=== PATIENT | female | born 1965 | race Caucasian/White ===

== ENCOUNTER 2025-03-02 15:23 | Observation (INO) ==
[2025-03-02 16:19] LABS: Hematocrit (blood only) 43.2 % (37.0-47.0); Hemoglobin 14.9 g/dl (12.0-16.0); Mean Corpuscular Hemoglobin 28.8 pg (25.0-34.0); Mean Corpuscular Volume 83.6 fL (80.0-100.0); Platelet Count 260 K/uL (130-400); RDW Standard Deviation 38.1 fL (36.4-46.3); Red Blood Count 5.17 M/uL (4.20-5.40); White Blood Count 13.06 K/ul (4.8-10.8)
[2025-03-02 16:32] LABS: Appearance Urine Cloudy (Clear); Bacteria Urine Automated None Seen (None Seen); Glucose Urine UA Negative (Negative); WBC Urine Automated >50 /hpf (0-5)
--- NOTE | 2025-03-02 16:33 | Emergency Department Note ---
Impression & Plan Hematemesis, Melena, Acute prerenal azotemia ED Provider Note NAME: JT ANDERSEN AGE: 59 SEX: F : 1965 ARRIVES VIA: Walk-In INFORMANT: Patient, ED PROVIDER(S): Suresh Vazquez MD CHIEF COMPLAINT: MEDICAL DECISION MAKING: Patient presents due to concern for dark emesis and dark stools. Known history of dual antiplatelet therapy. IV was established and blood work was obtained. Patient's blood work shows a white count of 13 normal hemoglobin and platelet count. The patient's kidney function is unremarkable but does have prerenal azotemia with a BUN to creatinine ratio 26.8 which could be the sign of the beginning of an upper GI bleed especially in light of the patient's symptoms. Patient was ordered PPI bolus and drip as well as IV fluids. Patient is amenable to the bare minimum and overnight for monitoring and trending her H&H's. I did speak the on-call hospitalist service Dr. Cedeno and the patient was admitted to the medicine service. Patient hemodynamically stable at the time of admission. Discussion w/ other healthcare providers: Dr. Cedeno Prior /Outside records reviewed: None Differential diagnosis: Diverticulitis, AVM, coagulopathy, colitis, inflammatory bowel disease, malignancy, esophagitis, peptic ulcer disease, variceal bleed, gastritis, fissure, hemorrhoids, as well as other pathologies. Diagnostics, as interpreted by me: ECG: None Cardiac monitoring: An order was placed for continuous cardiac monitoring. The monitor shows a rate of 90 with sinus rhythm. Patient was placed on pulse oximetry Medical decision rules: None Imaging studies: I informally interpreted the patient's chest x-ray does not show obvious pneumonia or pneumothorax with formal report to follow. HPI: Patient presents due to concern for dark stools and vomiting dark emesis. The patient states that she noticed dark stools yesterday did have dark bowel movement today states that she ate 5 pieces of watermelon today and had an episode of vomiting which she said was dark in color. Patient denies any chest pain but does feel a bit short of breath and winded. The patient states that she does have a known history of Fabio-en-Y gastric bypass that was completed 14 years ago but is from [place]. 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 She is currently presenting here due to her acute symptoms. Patient denies any current abdominal pains. She does take aspirin and Plavix. Patient does not take any other NSAIDs. She does report that if she eats too much or too quickly it will cause her to vomit. Patient thought initially that was the cause after eating a lot of the watermelon. PAST MEDICAL HISTORY: Hypertension, diabetes, GERD, bipolar PAST SURGICAL HISTORY: Cholecystectomy, thyroidectomy, Fabio-en-Y gastric bypass SOCIAL HISTORY: Lives in [place]. Denies alcohol tobacco or drug use HOME MEDICATIONS: See Below ALLERGIES: See Below VITALS: See Below PHYSICAL EXAMINATION: GENERAL: NAD, non-toxic. EYE EXAM: Normal conjunctiva. PERRL, no anisocoria and EOM's grossly intact w/o pain. OROPHARYNX: Moist mucus membranes, grossly normal dentition. NECK: Trachea midline, no stridor. LUNGS: Clear to auscultation. Normal chest wall mechanics. HEART: NSR, no MRG. ABDOMEN: Abdomen soft, non-tender, no masses, no rebound or guarding. BACK: No CVA TTP. SKIN: No rashes and no bruising. UPPER EXTREMITIES: Upper extremities are grossly normal. LOWER EXTREMITIES: Grossly normal, no edema. NEURO EXAM: Awake and alert, follows commands, no obvious facial asymmetry, normal speech, moves all 4 extremities. Past Med/Surg History Problem List (Updated 03/02/25 @ 20:46 by Suresh Vazquez MD) Acute prerenal azotemia (Acute) Acute kidney injury Melena (Acute) Hematemesis (Acute) Social History Smoking Status: Never smoker Preferred Language: Sammarinese Feels Safe at Home: Yes Allergies Allergies Allergy/AdvReac Type Severity Reaction Status Date / Time gabapentin Allergy Intermediate Hives Verified 03/02/25 19:06 insulin glargine Allergy Intermediate Rash Verified 03/02/25 19:06 pregabalin [From Lyrica] Allergy Intermediate Rash Verified 03/02/25 19:06 acetaminophen [From Tylenol] AdvReac Severe "CAN'T USE Verified 03/02/25 19:06 MY LEGS"/NERVES "JUMP" ALL THROUGH MY BODY Home Meds Home Medications Medication Instructions Recorded Confirmed aripiprazole 20 mg tablet 20 mg PO DAILY 03/02/25 03/02/25 aspirin 81 mg tablet,delayed 81 mg PO DAILY 03/02/25 03/02/25 release budesonide 160 mcg-glycopyr 9 1 inh inhalation DIRECTED 03/02/25 03/02/25 mcg-formot 4.8 mcg/actuation HFA inhaler (Breztri Aerosphere) bumetanide 2 mg tablet 2 mg PO QAM 03/02/25 03/02/25 clopidogrel 75 mg tablet 75 mg PO DAILY 03/02/25 03/02/25 glipizide 5 mg tablet, extended 5 mg PO DAILY 03/02/25 03/02/25 release 24 hr levothyroxine 200 mcg tablet 200 mcg PO DIRECTED 03/02/25 03/02/25 levothyroxine 50 mcg tablet 50 mcg PO DAILY 03/02/25 03/02/25 lisinopril 2.5 mg tablet 2.5 mg PO DAILY 03/02/25 03/02/25 meclizine 25 mg tablet 25 mg PO DIRECTED PRN Dizziness 03/02/25 03/02/25 Or Vertigo pantoprazole 40 mg tablet,delayed 40 mg PO DAILY 03/02/25 03/02/25 release rosuvastatin 5 mg tablet 5 mg PO DAILY 03/02/25 03/02/25 Results & Data (ED) Vital Signs Vital Signs - 24 hr 03/02/25 15:31 03/02/25 16:43 03/02/25 17:00 Temperature 36.4 C L Temperature Source Temporal Artery Scan Pulse Rate 100 H Pulse Rate [Apical] 113 H 91 H Respiratory Rate 18 17 16 Respiratory Effort / Characteristics Non-Labored Spontaneous Non-Labored Spontaneous Respiratory Depth Normal Normal Respiratory Pattern Regular Blood Pressure 144/87 H Blood Pressure [Right Arm] 140/78 124/88 Blood Pressure Mean 106 Blood Pressure Mean [Right Arm] 98 100 Blood Pressure Position Sitting Pulse Oximetry 96 96 97 Oxygen Delivery Method Room Air Room Air Room Air Sepsis Recent Fever Within 48 Hours No Sepsis New/Unexplained Change in Mental Status No Sepsis Action Taken by Nursing No Action Required 03/02/25 18:28 03/02/25 19:00 Temperature Temperature Source Pulse Rate 89 Pulse Rate [Apical] 90 Respiratory Rate 20 Respiratory Effort / Characteristics Respiratory Depth Respiratory Pattern Blood Pressure Blood Pressure [Right Arm] 127/80 Blood Pressure Mean Blood Pressure Mean [Right Arm] 95 Blood Pressure Position Pulse Oximetry 97 Oxygen Delivery Method Room Air Sepsis Recent Fever Within 48 Hours Sepsis New/Unexplained Change in Mental Status Sepsis Action Taken by Correction Medications Current Medication List: was personally reviewed by me Laboratory Data Attestation: I reviewed the patient's lab results. 03/02/25 15:57 03/02/25 15:57 Lab Results 03/02/25 03/02/25 Range/Units 15:57 16:06 WBC 13.06 H (4.8-10.8) K/ul RBC 5.17 (4.20-5.40) M/uL Hgb 14.9 (12.0-16.0) g/dl Hct 43.2 (37.0-47.0) % MCV 83.6 (80.0-100.0) fL MCH 28.8 (25.0-34.0) pg MCHC 34.5 (32.0-36.0) g/dL RDW Std Deviation 38.1 (36.4-46.3) fL RDW Coeff of Markos 12.4 (11.5-14.5) % Plt Count 260 (130-400) K/uL MPV 10.6 (9.4-12.4) fL PT 10.8 (9.0-12.0) Seconds INR 1.0 (0.9-1.1) APTT 28 (21-31) Seconds PTT Ratio 1.0 Sodium 136 (136-145) mmol/L Potassium 4.1 (3.5-5.1) mmol/L Chloride 102 (98-107) mmol/L Carbon Dioxide 24 (21-32) mmol/L Anion Gap 10 (3-11) BUN 38 H (6-23) mg/dl Creatinine 1.42 H (0.6-1.2) mg/dl Est Cr Clr Drug Dosing 43.5 ml/min eGFR 42.34 BUN/Creatinine Ratio 26.8 H (10-20) Glucose 214 H (70-99(Fasting)) mg/dl Calcium 9.1 (8.6-10.3) mg/dl Total Bilirubin 0.4 (0.2-1.0) mg/dl AST 24 (13-39) U/L ALT 9 (7-52) U/L Alkaline Phosphatase 110 H (34-104) U/L Troponin I High Sens 5.0 (0-14) pg/ml Total Protein 7.2 (6.0-8.3) gm/dl Albumin 3.9 (3.4-5.0) gm/dl Globulin 3.3 (2.5-4.0) gm/dl Albumin/Globulin Ratio 1.2 (0.9-2) Urine Color Yellow Urine Appearance Cloudy A (Clear) Urine pH 5.0 (4.5-7.5) Ur Specific [place] 1.027 (1.000-1.030) Urine Protein 2+ H (Negative) Urine Glucose (UA) Negative (Negative) Urine Ketones 1+ H (Negative) Urine Blood 2+ H (Negative) Urine Nitrite Negative (Negative) Urine Bilirubin Negative (Negative) Urine Urobilinogen Negative (Negative) Ur Leukocyte Esterase 2+ H (Negative) Urine WBC (Auto) >50 H (0-5) /hpf Urine RBC (Auto) 6-10 H (0-2) /hpf U Hyaline Cast (Auto) 11-20 H (0-2) /lpf U Epithel Cells (Auto) 3-5 H (0-2) /hpf Urine Bacteria (Auto) None Seen (None Seen) Urine Comment Blood Type O Negative Antibody Screen NEGATIVE Administered Medications Pantoprazole Sodium 40 mg/ (Dextrose) 100 mls @ 20 mls/hr IV Q5H LUKE Stop: 04/01/25 18:14 Last Admin: 03/02/25 19:02 Dose: 8 mg/hr, 20 mls/hr Documented By: BUBBA Sodium Chloride (Nss) 1,000 mls @ 125 mls/hr IV .Q8H STA Stop: 03/03/25 02:38 Last Admin: 03/02/25 19:53 Dose: 125 mls/hr Documented By: BUBBA Octreotide Acetate 500 mcg/ (Sodium Chloride) 100.5 mls @ 10.05 mls/hr IV .Q10H LUKE Stop: 03/04/25 19:14 Last Admin: 03/02/25 19:53 Dose: 50 mcg/hr, 10.1 mls/hr Documented By: BUBBA Discontinued Medications Pantoprazole Sodium 80 mg/ (Dextrose) 120 mls @ 480 mls/hr IV NOW ONE Stop: 03/02/25 18:01 Last Infusion: 03/02/25 19:01 Dose: Infused Documented By: Admin: 03/02/25 18:41 Dose: 480 mls/hr Documented By: BUBBA Sodium Chloride (Nss) 500 mls @ 999 mls/hr IV .Q31M ONE Stop: 03/02/25 18:17 Last Admin: 03/02/25 19:05 Dose: Not Given Documented By: BUBBA Sodium Chloride (Nss) 500 mls @ 999 mls/hr IV .Q31M ONE Stop: 03/02/25 19:23 Last Infusion: 03/02/25 19:37 Dose: Infused Documented By: NRThao Admin: 03/02/25 19:06 Dose: 999 mls/hr Documented By: BUBBA Octreotide Acetate 50 mcg/ (Syringe) 5 mls @ 3 mls/min IV NOW STA Stop: 03/02/25 19:33 Last Admin: 03/02/25 19:48 Dose: 3 mls/min Documented By: BUBBA Miscellaneous (Stat Iv/Im) 1 each N/A NOW STA Stop: 03/02/25 19:10 Last Admin: 03/02/25 20:01 Dose: Not Given Documented By: BUBBA Pantoprazole Sodium (Pantoprazole Bolus/Drip) 1 each IV NOW STA Stop: 03/02/25 17:48 Last Admin: 03/02/25 18:52 Dose: Not Given Documented By: BUBBA Imaging Data Radiologist's Impression: Chest X-Ray 03/02/25 16:36 Exam: Chest one view portable Reason for exam: Dyspnea Previous studies: None FINDINGS: Portable exam shows normal cardiac size. The lungs show no active infiltrate, collapse or edema and no pleural effusion or pneumothorax is noted. IMPRESSION: No acute disease seen at this time. Electronically signed by Bryan Friend 03-02-2025 5:41 PM Discharge Plan Visit Data Chief Complaint: GI Bleed Stated Complaint: BLACK STOOL,VOMITING BLOOD,BURNING THROAT ED Provider: Suresh Vazquez Discharge Problem: Hematemesis, Melena, Acute prerenal azotemia Patient Disposition: Admitted As Inpatient Condition: Good Forms Stand Alone Forms: streamit Prescriptions Prescriptions: No Action glipizide 5 mg tablet extended release 24hr 5 mg PO DAILY clopidogrel 75 mg tablet 75 mg PO DAILY meclizine 25 mg tablet 25 mg PO DIRECTED PRN (Reason: Dizziness Or Vertigo) levothyroxine 50 mcg tablet 50 mcg PO DAILY Rx Instructions: TOTAL DOSE 250 MCG--TAKES WITH 200 MCG TAB. pantoprazole 40 mg tablet,delayed release (DR/EC) 40 mg PO DAILY levothyroxine 200 mcg tablet 200 mcg PO DIRECTED Rx Instructions: TOTAL DOSE 250 MCG--TAKES WITH 50 MCG TAB. aripiprazole 20 mg tablet 20 mg PO DAILY rosuvastatin 5 mg tablet 5 mg PO DAILY Breztri Aerosphere 160-9-4.8 mcg/actuation HFA aerosol inhaler 1 inh INHALATION DIRECTED bumetanide 2 mg tablet 2 mg PO QAM aspirin 81 mg Tablet,Delayed Release (Dr/Ec) 81 mg PO DAILY lisinopril 2.5 mg tablet 2.5 mg PO DAILY Referrals Referrals: PCP,NO [Primary Care Provider] - Discharge Problem: Hematemesis Qualifiers: Nausea presence: unspecified Qualified Code(s): K92.0 - Hematemesis
[2025-03-02 16:35] LABS: Alanine Aminotransferase 9.0 U/L (7-52); Albumin Globulin Ratio 1.2 (0.9-2); Alkaline Phosphatase 110.0 U/L (34-104); Anion Gap 10.0 (3-11); Bilirubin,Total 0.4 mg/dl (0.2-1.0); Blood Urea Nitrogen 38.0 mg/dl (6-23); Calcium 9.1 mg/dl (8.6-10.3); Carbon Dioxide 24.0 mmol/L (21-32); Chloride 102.0 mmol/L (98-107); Creatinine Clr Calc Pharmacy 43.5 ml/min; Globulin 3.3 gm/dl (2.5-4.0); Glucose 214.0 mg/dl (70-99(Fasting)); Potassium 4.1 mmol/L (3.5-5.1); Sodium 136.0 mmol/L (136-145); Total Protein 7.2 gm/dl (6.0-8.3)
[2025-03-02 16:56] LABS: INR 1.0 (0.9-1.1); Partial Thromboplastin Time 28 Seconds (21-31); Prothrombin Time 10.8 Seconds (9.0-12.0)
--- NOTE | 2025-03-02 17:41 | XRay Report ---
Exam: Chest one view portable Reason for exam: Dyspnea Previous studies: None FINDINGS: Portable exam shows normal cardiac size. The lungs show no active infiltrate, collapse or edema and no pleural effusion or pneumothorax is noted. IMPRESSION: No acute disease seen at this time. Electronically signed by Bryan Friend 03-02-2025 5:41 PM
[2025-03-02] MEDS: PANTOPRAZOLE BOLUS/DRIP IV STA (18:52)
--- NOTE | 2025-03-02 18:53 | History & Physical Report ---
Date of Service March 02, 2025 Assessment & Plan (1) Hematemesis: Plan: Grace is a 59 yo woman with PMH of gastric bypass surgery in 2013; diabetes (non-insulin dependent), CKD, bipolar, she[place]. since yesterday, she been having melena, bloody vomiting, and inability to tolerate solid intake she is a Jehovah witness. on 03/02/2025, she's came to [facility] for evaluation for found to has acute kidney injury and admitted for upper gI bleeding, started on protonix her last dose of plavix was on 03/01/2025 morning, she was started on IV fluid and IV protonix 1. melena 2. hematemesis 3. acute kidney injury 4. hx of gastric bypass surgery in 2013 5. Jehovah witness 6. hx of CKD 7. acetominophen allergy 8. diabetes (non-insulin dependent) 9. bipolar 10, hypothyroidism 1. melena, blood loss anemia c/w protonix infusion, Octreotide trend h/h every 8 hours GI notified hold plavix, hold aspirin 2. hematemesis around 6:45PM, NURSING noticed another episode NPO 3. acute kidney injury IV fluid, hold low dose lisinopril she's mentioned hx of CKD 4. diabetes she been off insulin since 2013 hold glipizide and poiligitone no sliding scale insulin 5. hypothyroidism, synthyroid 250mcg daily 6. bipolar, abilify 40mg daily 7.hx of gastric bypass surgery, performed in 2013 her GI doctor is Dr. Anne-Marie Rodríguez her last EGD was more than 4-5 years ago emergency contact , Aki, brother in law, Ed, PCP-David Ulrich; , [address], [place] (2) Melena: (3) Acute kidney injury: Admission and Anticipated Discharge Date Admission Date: March 02, 2025 History of Present Illness Chief Complaint: melena, hematemesis, inability to tolerate solid food hx of gastric bypass in 2013 on plavix (last dose on 03/01) morning Primary Care Provider: David Ulrich ([address] [place] [address]), Kesha Kaminski, [place] Grace is a 59 yo woman with PMH of morbid obesity s/p gastric bypass in 2013, diabetes (non-insulin dependent), CKD, bipolar disorder she is a Jevoh[employer] witness, in the the past, has severe allergy to acetaminophen and insulin since 2 days ago, she's been noticing melena, and indigestion, in addition, she been having inability to tolerate solid food and bloody vomiting. she was following with GI (Dr. Anne-Marie Rodríguez) in [facility] but has no recent EGD she's taking aspirin and plavix. 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 she is a Jevohah witness and declined blood transfusion she's has severe allergy to acetaminophen, one specific type of insulin after her gastric surgery in 2013, she no longer need insulin Allergies Allergy/AdvReac Type Severity Reaction Status Date / Time acetaminophen [From Tylenol] Allergy Severe Verified 03/02/25 18:34 gabapentin Allergy Intermediate Hives Verified 03/02/25 18:34 Home Medications Medication Instructions Recorded Confirmed Type aripiprazole 20 mg tablet 20 mg PO DAILY 03/02/25 History budesonide 160 mcg-glycopyr 9 1 inh inhalation DIRECTED 03/02/25 History mcg-formot 4.8 mcg/actuation HFA inhaler (Breztri Aerosphere) clopidogrel 75 mg tablet 75 mg PO DAILY 03/02/25 History glipizide 5 mg tablet, extended 5 mg PO DAILY 03/02/25 History release 24 hr levothyroxine 200 mcg tablet 200 mcg PO DIRECTED 03/02/25 History levothyroxine 50 mcg tablet 50 mcg PO DIRECTED 03/02/25 History meclizine 25 mg tablet 25 mg PO DIRECTED PRN Dizziness 03/02/25 History Or Vertigo pantoprazole 40 mg tablet,delayed 40 mg PO DAILY 03/02/25 History release pioglitazone 30 mg tablet 30 mg PO DAILY 03/02/25 History rosuvastatin 5 mg tablet 5 mg PO DAILY 03/02/25 History Past Med/Surg History Problem List (Updated 03/02/25 @ 18:54 by Dallas Cedeno DO) Acute kidney injury Melena Hematemesis Social History Smoking Status: Never smoker Preferred Language: Colombian Feels Safe at Home: Yes Review of Systems Review of Systems: Constitutional: No Weight Change, No Fever, No Chills, No Night Sweats, No Fatigue, No Malaise HEENT: + for thyroid surgery in 2013, Cardiovascular: No Chest Pain, No SOB, No PND, No Dyspnea on Exertion, No Orthopnea, No Claudication, No Edema, No Palpitations Respiratory: No Cough, No Sputum, No Wheezing, No Smoke Exposure, No Dyspnea Gastrointestinal: + for melena; + for nausea and vomiting; + for inability to tolerate solid food; + for gastric bypass surgery in 2013; + for gallbladder surgery in 2013 Genitourinary: No Dysmenorrhea, No DUB, No Dyspareunia, No Dysuria, No Urinary Frequency, No Hematuria, No Urinary Incontinence, No Urgency, No Flank Pain, No Urinary Flow Changes, No Hesitancy Skin: no easy bleeding or bruising Neuro: No Weakness, No Numbness, No Paresthesias, No Loss of Consciousness, No Syncope, No Dizziness, No Headache, No Coordination Changes, No Recent Falls Psych:+ for bipolar Heme/Lymph: No Bruising, No Bleeding, No Transfusions History, No Lymphadenopathy Endocrine: + for hypothyroidism; + for thyroid surgery in 2013; + for diabetes. Physical Exam Physical Exam: General: no acute distress HEENT:AT/NC heart: Normal s1; s2; RRR lung: CTA b/l; no wheezing abdomen: soft to touch; non-tender to palpation MSK: no edema : no CVA tenderness neurO: AAox3 psych; calm Results & Data Results & Data Vital Signs (Past 12 Hours) Vital Signs Temp Pulse Pulse Resp BP BP Pulse Ox 03/02/25 18:28 89 03/02/25 17:00 91 H 16 124/88 97 03/02/25 16:43 113 H 17 140/78 96 03/02/25 15:31 36.4 C L 100 H 18 144/87 H 96 O2 Del Method 03/02/25 18:28 03/02/25 17:00 Room Air 03/02/25 16:43 Room Air 03/02/25 15:31 Room Air Laboratory Results Laboratory Results - last 72 hr 03/02/25 03/02/25 15:57 16:06 WBC 13.06 H RBC 5.17 Hgb 14.9 Hct 43.2 MCV 83.6 MCH 28.8 MCHC 34.5 RDW Std Deviation 38.1 RDW Coeff of Markos 12.4 Plt Count 260 MPV 10.6 PT 10.8 INR 1.0 APTT 28 PTT Ratio 1.0 Sodium 136 Potassium 4.1 Chloride 102 Carbon Dioxide 24 Anion Gap 10 BUN 38 H Creatinine 1.42 H Est Cr Clr Drug Dosing 43.5 eGFR 42.34 BUN/Creatinine Ratio 26.8 H Glucose 214 H Calcium 9.1 Total Bilirubin 0.4 AST 24 ALT 9 Alkaline Phosphatase 110 H Troponin I High Sens 5.0 Total Protein 7.2 Albumin 3.9 Globulin 3.3 Albumin/Globulin Ratio 1.2 Urine Color Yellow Urine Appearance Cloudy A Urine pH 5.0 Ur Specific [place] 1.027 Urine Protein 2+ H Urine Glucose (UA) Negative Urine Ketones 1+ H Urine Blood 2+ H Urine Nitrite Negative Urine Bilirubin Negative Urine Urobilinogen Negative Ur Leukocyte Esterase 2+ H Urine WBC (Auto) >50 H Urine RBC (Auto) 6-10 H U Hyaline Cast (Auto) 11-20 H U Epithel Cells (Auto) 3-5 H Urine Bacteria (Auto) None Seen Urine Comment Blood Type O Negative Antibody Screen NEGATIVE Medications Administered Current Inpatient Medications Pantoprazole Sodium 40 mg/ (Dextrose) 100 mls @ 20 mls/hr IV Q5H LUKE Stop: 04/01/25 18:14 Sodium Chloride (Nss) 1,000 mls @ 125 mls/hr IV .Q8H STA Stop: 03/03/25 02:38 Sodium Chloride (Nss) 500 mls @ 999 mls/hr IV .Q31M ONE Stop: 03/02/25 19:23 PG Care Time/CCT Total # of Minutes Spent Total Time Spent with Patient: Total time spent is greater than 50% in coordination of care (as documented) at patient's floor/unit and/or counseling patient: Coding Level of Care Code 04857 INT INP/OBS CARE 2/55MIN Diagnoses Hematemesis K92.0 Melena K92.1 Acute kidney injury N17.9 Time Spent (min) 55
[2025-03-02] MEDS: PANTOprazole 40 MG in DEXTROSE 5% MINI-B 100 ML IV SCH (19:02)
[2025-03-02] MEDS: SODIUM CHLORIDE 0.9% 500 ML IV ONE ×2 (19:05→19:06)
[2025-03-02] MEDS ORDERED: OCTREOTIDE ACETATE 100 MCG/ML VIAL SQ STA (19:09)
[2025-03-02] MEDS: OCTREOTIDE ACETATE IV STA (19:48)
[2025-03-02] MEDS: OCTREOTIDE ACETATE 500 MCG in SODIUM CHLORIDE 0.9% 100 ML IV SCH (19:53)
[2025-03-02] MEDS: SODIUM CHLORIDE 0.9% 1,000 ML IV STA (19:53)
[2025-03-02] MEDS: STAT IV/IM STA (20:01)
[2025-03-02 22:03] LABS: Hematocrit (blood only) 26.5 % (37.0-47.0); Hemoglobin 8.7 g/dl (12.0-16.0); Immature Granulocytes # (auto) 0.03 K/uL (0.01-0.20); Immature Granulocytes % (auto) 0.3 %; Mean Corpuscular Hemoglobin 28.4 pg (25.0-34.0); Mean Corpuscular Volume 86.6 fL (80.0-100.0); Platelet Count 148 K/uL (130-400); RDW Standard Deviation 39.8 fL (36.4-46.3); Red Blood Count 3.06 M/uL (4.20-5.40); White Blood Count 9.66 K/ul (4.8-10.8)
[2025-03-02] MEDS ORDERED: MECLIZINE HCL 25 MG TAB PO PRN (23:01)
[2025-03-02] MEDS ORDERED: NON-FORMULARY MEDICATION (Budesonide-Glycopyr-Formoterol [Breztri Aerosphere] 160-9-4.8 mc INH SCH (23:01)
[2025-03-02] MEDS: ROSUVASTATIN CALCIUM 5 MG TAB PO SCH (23:59)
[2025-03-03] MEDS: LEVOTHYROXINE SODIUM 200 MCG TABLET PO SCH (06:25)
[2025-03-03] MEDS: LEVOTHYROXINE SODIUM 50 MCG TABLET PO SCH (06:25)
--- NOTE | 2025-03-03 07:28 | Gastrointestinal Consultation ---
Date of Consultation March 03, 2025 Assessment & Plan (1) GI bleed: Clinical picture consistent with upper GI bleed. Differential diagnosis includes Louise-Brand tear, anastomotic ulcer status post gastric bypass, vascular ectasias less likely neoplastic process. Maintain hemoglobin greater than 7. Continue IV PPI. Plan for urgent endoscopy today. History of Present Illness Reason for Consultation: GI bleed Attending Physician: Dallas Cedeno DO History of Present Illness Patient presents with a 2-day history of black loose bowel movements and an episode of coffee-ground emesis at home. She has been having some nausea and more frequent vomiting over the last several days. She has a history of gastric bypass from 2013. Has had no serious GI symptoms since then. In the emergency room she vomited bright red blood. Last bowel movement was this morning that was still black. Hemodynamically she is stable. She denies any recent excessive use of NSAIDs. History of fatty liver but no history of cirrhosis. She is status post cholecystectomy. Has a history of thyroid cancer status post thyroidectomy. Allergies Allergy/AdvReac Type Severity Reaction Status Date / Time gabapentin Allergy Intermediate Hives Verified 03/02/25 19:06 insulin glargine Allergy Intermediate Rash Verified 03/02/25 19:06 pregabalin [From Lyrica] Allergy Intermediate Rash Verified 03/02/25 19:06 acetaminophen [From Tylenol] AdvReac Severe "CAN'T USE Verified 03/02/25 19:06 MY LEGS"/NERVES "JUMP" ALL THROUGH MY BODY Home Medications Medication Instructions Recorded Confirmed Type aripiprazole 20 mg tablet 20 mg PO DAILY 03/02/25 03/02/25 History aspirin 81 mg tablet,delayed 81 mg PO DAILY 03/02/25 03/02/25 History release budesonide 160 mcg-glycopyr 9 1 inh inhalation DIRECTED 03/02/25 03/02/25 History mcg-formot 4.8 mcg/actuation HFA inhaler (Breztri Aerosphere) bumetanide 2 mg tablet 2 mg PO QAM 03/02/25 03/02/25 History clopidogrel 75 mg tablet 75 mg PO DAILY 03/02/25 03/02/25 History glipizide 5 mg tablet, extended 5 mg PO DAILY 03/02/25 03/02/25 History release 24 hr levothyroxine 200 mcg tablet 200 mcg PO DIRECTED 03/02/25 03/02/25 History levothyroxine 50 mcg tablet 50 mcg PO DAILY 03/02/25 03/02/25 History lisinopril 2.5 mg tablet 2.5 mg PO DAILY 03/02/25 03/02/25 History meclizine 25 mg tablet 25 mg PO DIRECTED PRN Dizziness 03/02/25 03/02/25 History Or Vertigo pantoprazole 40 mg tablet,delayed 40 mg PO DAILY 03/02/25 03/02/25 History release rosuvastatin 5 mg tablet 5 mg PO DAILY 03/02/25 03/02/25 History Patient History Social History Smoking Status: Unknown if ever smoked Hx Alcohol Use: Yes Alcohol type: hard liquor Hx Substance Use: No Preferred Language: [place] Leonean Communication Ability: Effective Underwriting Intern Required: No Beliefs That Will Affect Care: Voodoo Voodoo Beliefs: Mandaeism Current Living Situation: Spouse Other Information That Helps Us Care for You: No Feels Safe at Home: Yes Safety Concerns: Feels Safe At This Time Assistive Devices: Glasses Review of Systems Review of Systems: No fever No chills No SOB No CP No Abd pain Physical Exam Physical Exam: Eyes; anicteric HENT No masses Chest clear to A Cor S1, S2 physiologic Abd: softer nontender no masses Ext no edema Results & Data Vital Signs (Past 12 Hours) Vital Signs Temp Pulse Pulse Resp BP BP BP 03/03/25 07:24 36.5 C 70 20 122/77 03/03/25 03:13 36.5 C 80 16 113/76 03/02/25 23:11 86 03/02/25 23:10 36.6 C 80 16 126/66 03/02/25 22:41 95 H 18 118/66 03/02/25 22:30 85 17 100/58 L 03/02/25 22:00 79 15 117/65 03/02/25 21:30 87 19 114/77 03/02/25 21:00 85 24 03/02/25 21:00 93 H 24 136/86 03/02/25 20:30 81 20 141/74 H 03/02/25 20:03 89 18 128/80 03/02/25 19:39 94 H 23 141/74 H Pulse Ox O2 Del Method 03/03/25 07:24 97 Room Air 03/03/25 03:13 97 Room Air 03/02/25 23:11 03/02/25 23:10 99 Room Air 03/02/25 22:41 98 Room Air 03/02/25 22:30 98 03/02/25 22:00 99 03/02/25 21:30 97 03/02/25 21:00 99 03/02/25 21:00 97 Room Air 03/02/25 20:30 96 03/02/25 20:03 95 03/02/25 19:39 99 Laboratory Results Laboratory Results - last 48 hr 03/02/25 03/02/25 03/02/25 15:57 16:06 19:05 WBC 13.06 H RBC 5.17 Hgb 14.9 Hct 43.2 MCV 83.6 MCH 28.8 MCHC 34.5 RDW Std Deviation 38.1 RDW Coeff of Markos 12.4 Plt Count 260 MPV 10.6 Immature Gran % (Auto) Neut % (Auto) Lymph % (Auto) [place] % (Auto) Eos % (Auto) Baso % (Auto) Neut # (Auto) Lymph # (Auto) [place] # (Auto) Eos # (Auto) Baso # (Auto) Immature Gran # (Auto) PT 10.8 INR 1.0 APTT 28 PTT Ratio 1.0 Sodium 136 Potassium 4.1 Chloride 102 Carbon Dioxide 24 Anion Gap 10 BUN 38 H Creatinine 1.42 H Est Cr Clr Drug Dosing 43.5 eGFR 42.34 BUN/Creatinine Ratio 26.8 H Glucose 214 H Calcium 9.1 Total Bilirubin 0.4 AST 24 ALT 9 Alkaline Phosphatase 110 H Troponin I High Sens 5.0 Total Protein 7.2 Albumin 3.9 Globulin 3.3 Albumin/Globulin Ratio 1.2 Urine Color Yellow Urine Appearance Cloudy A Urine pH 5.0 Ur Specific [place] 1.027 Urine Protein 2+ H Urine Glucose (UA) Negative Urine Ketones 1+ H Urine Blood 2+ H Urine Nitrite Negative Urine Bilirubin Negative Urine Urobilinogen Negative Ur Leukocyte Esterase 2+ H Urine WBC (Auto) >50 H Urine RBC (Auto) 6-10 H U Hyaline Cast (Auto) 11-20 H U Epithel Cells (Auto) 3-5 H Urine Bacteria (Auto) None Seen Urine Comment Stool Occult Bld Scrn Blood Type O Negative Blood Type Recheck O Negative Antibody Screen NEGATIVE 03/02/25 03/03/25 20:29 Unknown WBC 9.66 RBC 3.06 L Hgb 8.7 L D Hct 26.5 L MCV 86.6 MCH 28.4 MCHC 32.8 RDW Std Deviation 39.8 RDW Coeff of Markos 12.6 Plt Count 148 MPV 10.9 Immature Gran % (Auto) 0.3 Neut % (Auto) 76.9 Lymph % (Auto) 15.1 [place] % (Auto) 7.1 Eos % (Auto) 0.4 Baso % (Auto) 0.2 Neut # (Auto) 7.42 H Lymph # (Auto) 1.46 [place] # (Auto) 0.69 H Eos # (Auto) 0.04 Baso # (Auto) 0.02 Immature Gran # (Auto) 0.03 PT INR APTT PTT Ratio Sodium Potassium Chloride Carbon Dioxide Anion Gap BUN Creatinine Est Cr Clr Drug Dosing eGFR BUN/Creatinine Ratio Glucose Calcium Total Bilirubin AST ALT Alkaline Phosphatase Troponin I High Sens Total Protein Albumin Globulin Albumin/Globulin Ratio Urine Color Urine Appearance Urine pH Ur Specific [place] Urine Protein Urine Glucose (UA) Urine Ketones Urine Blood Urine Nitrite Urine Bilirubin Urine Urobilinogen Ur Leukocyte Esterase Urine WBC (Auto) Urine RBC (Auto) U Hyaline Cast (Auto) U Epithel Cells (Auto) Urine Bacteria (Auto) Urine Comment Stool Occult Bld Scrn Negative Blood Type Blood Type Recheck Antibody Screen Diagnostic Findings Chest X-Ray 03/02/25 16:36 Exam: Chest one view portable Reason for exam: Dyspnea Previous studies: None FINDINGS: Portable exam shows normal cardiac size. The lungs show no active infiltrate, collapse or edema and no pleural effusion or pneumothorax is noted. IMPRESSION: No acute disease seen at this time. Electronically signed by Bryan Friend 03-02-2025 5:41 PM PG Care Time/CCT Total # of Minutes Spent Total Time Spent with Patient: Total time spent is greater than 50% in coordination of care (as documented) at patient's floor/unit and/or counseling patient: Coding Level of Care Code 72384 INT INP/OBS CARE 3/75MIN Diagnoses GI bleed K92.2
[2025-03-03 07:42] LABS: Hematocrit (blood only) 36.2 % (37.0-47.0); Hemoglobin 12.1 g/dl (12.0-16.0); Immature Granulocytes # (auto) 0.02 K/uL (0.01-0.20); Immature Granulocytes % (auto) 0.2 %; Mean Corpuscular Hemoglobin 29.1 pg (25.0-34.0); Mean Corpuscular Volume 87.0 fL (80.0-100.0); Platelet Count 219 K/uL (130-400); RDW Standard Deviation 40.3 fL (36.4-46.3); Red Blood Count 4.16 M/uL (4.20-5.40); White Blood Count 8.93 K/ul (4.8-10.8)
[2025-03-03] MEDS: FLUTICASONE FUROATE 200MCG 14 PUFFS/INHALER INH SCH (08:38)
[2025-03-03] MEDS: UMECLIDINIUM/VILANTEROL 62.5/25MCG 7 PUFFS/INHALER INH SCH (08:38)
[2025-03-03 09:03] LABS: Anion Gap 7.0 (3-11); Calcium 8.0 mg/dl (8.6-10.3); Carbon Dioxide 22.0 mmol/L (21-32); Chloride 109.0 mmol/L (98-107); Potassium 4.5 mmol/L (3.5-5.1); Sodium 138.0 mmol/L (136-145)
[2025-03-03 09:09] LABS: Blood Urea Nitrogen 40.0 mg/dl (6-23); Creatinine Clr Calc Pharmacy 51.9 ml/min; Glucose 162.0 mg/dl (70-99(Fasting))
--- NOTE | 2025-03-03 13:22 | Hospitalist Progress Note ---
Date of Service March 03, 2025 Assessment & Plan (1) Hematemesis: Plan: Grace is a 59 yo woman with PMH of gastric bypass surgery in 2013; diabetes (non-insulin dependent), CKD, bipolar, [place] since 03/01/2025, been having melena, bloody vomiting, and inability to tolerate solid intake she is a Jehovah witness. on 03/02/2025, she's came to [facility]) for hematemesis and found to acute kidney injury and admitted for upper gI bleeding, started on protonix her last dose of plavix was on 03/01/2025 she was started on IV fluid and IV protonix and ocretodie infusion GI plan for EGD 1. melena 2. hematemesis episode 3. acute kidney injury 4. hx of gastric bypass surgery in 2013 5. Jehovah witness 6. hx of CKD 7. acetominophen allergy 8. diabetes (non-insulin dependent) 9. bipolar 10, hypothyroidism 1. melena, blood loss anemia hemetemesis plan for EGD today c/w protonix infusion, Octreotide trend h/h every 8 hours hold plavix, hold aspirin she is Jehoavh witness 2. acute kidney injury IV fluid, hold low dose lisinopril she's mentioned hx of CKD holding her lisinopril 2.5mg 3 diabetes she been off insulin since 2013 hold glipizide and poiligitone no sliding scale insulin 4. hypothyroidism, synthyroid 250mcg daily 5. bipolar, abilify 40mg daily 6 .hx of gastric bypass surgery, performed in 2013 her GI doctor is Dr. Anne-Marie Rodríguez her last EGD was more than 4-5 years ago emergency contact , Aki, ([phone]) brother in law, Ed, PCP-David Neil MD, Praveena Kaminski [place] (2) Melena: (3) Acute kidney injury: Admission and Anticipated Discharge Date Admission Date: March 02, 2025 Subjective her H/H drop 14--> 8.7 she is a Jevohah witness. holding plavix, hold aspirin she was on protonix drip and ocretoide infusion plan for EGD today; updated ([phone]) Physical Exam Constitutional: VITALS: Reviewed. WEIGHT/BMI reviewed. GEN: Healthy appearing, well-developed, NAD. PSYCH: Good Judgment. AOx3. -Head: NC/AT; -Mouth and throat: MMM. Normal gums, muc alma, palate,. Good dentition. NECK: Supple, with no masses. CV: RRR, no m/r/g. LUNGS: CTAB, no w/r/c. ABD: Soft, NT/ND, NBS, no masses or organomegaly. : N/A MSK: No deformities, Normal gait. EXT: No clubbing, cyanosis, or edema. Results & Data Results & Data Vital Signs (Past 12 Hours) Vital Signs Temp Pulse Pulse Resp BP Pulse Ox O2 Del Method 03/03/25 11:26 36.8 C 66 20 127/79 96 Room Air 03/03/25 09:42 71 03/03/25 07:24 36.5 C 70 20 122/77 97 Room Air 03/03/25 03:13 36.5 C 80 16 113/76 97 Room Air Laboratory Results Laboratory Results - last 72 hr 03/02/25 03/02/25 03/02/25 15:57 16:06 19:05 WBC 13.06 H RBC 5.17 Hgb 14.9 Hct 43.2 MCV 83.6 MCH 28.8 MCHC 34.5 RDW Std Deviation 38.1 RDW Coeff of Markos 12.4 Plt Count 260 MPV 10.6 Immature Gran % (Auto) Neut % (Auto) Lymph % (Auto) [place] % (Auto) Eos % (Auto) Baso % (Auto) Neut # (Auto) Lymph # (Auto) [place] # (Auto) Eos # (Auto) Baso # (Auto) Immature Gran # (Auto) PT 10.8 INR 1.0 APTT 28 PTT Ratio 1.0 Sodium 136 Potassium 4.1 Chloride 102 Carbon Dioxide 24 Anion Gap 10 BUN 38 H Creatinine 1.42 H Est Cr Clr Drug Dosing 43.5 eGFR 42.34 BUN/Creatinine Ratio 26.8 H Glucose 214 H Calcium 9.1 Total Bilirubin 0.4 AST 24 ALT 9 Alkaline Phosphatase 110 H Troponin I High Sens 5.0 Total Protein 7.2 Albumin 3.9 Globulin 3.3 Albumin/Globulin Ratio 1.2 Urine Color Yellow Urine Appearance Cloudy A Urine pH 5.0 Ur Specific [place] 1.027 Urine Protein 2+ H Urine Glucose (UA) Negative Urine Ketones 1+ H Urine Blood 2+ H Urine Nitrite Negative Urine Bilirubin Negative Urine Urobilinogen Negative Ur Leukocyte Esterase 2+ H Urine WBC (Auto) >50 H Urine RBC (Auto) 6-10 H U Hyaline Cast (Auto) 11-20 H U Epithel Cells (Auto) 3-5 H Urine Bacteria (Auto) None Seen Urine Comment Stool Occult Bld Scrn Blood Type O Negative Blood Type Recheck O Negative Antibody Screen NEGATIVE 03/02/25 03/03/25 03/03/25 20:29 06:37 08:29 WBC 9.66 8.93 RBC 3.06 L 4.16 L Hgb 8.7 L D 12.1 D Hct 26.5 L 36.2 L MCV 86.6 87.0 MCH 28.4 29.1 MCHC 32.8 33.4 RDW Std Deviation 39.8 40.3 RDW Coeff of Markos 12.6 12.7 Plt Count 148 219 MPV 10.9 10.9 Immature Gran % (Auto) 0.3 0.2 Neut % (Auto) 76.9 60.2 Lymph % (Auto) 15.1 28.8 [place] % (Auto) 7.1 7.4 Eos % (Auto) 0.4 2.8 Baso % (Auto) 0.2 0.6 Neut # (Auto) 7.42 H 5.38 Lymph # (Auto) 1.46 2.57 [place] # (Auto) 0.69 H 0.66 H Eos # (Auto) 0.04 0.25 Baso # (Auto) 0.02 0.05 Immature Gran # (Auto) 0.03 0.02 PT INR APTT PTT Ratio Sodium 138 Potassium 4.5 Chloride 109 H Carbon Dioxide 22 Anion Gap 7 BUN 40 H Creatinine 1.20 Est Cr Clr Drug Dosing 51.9 eGFR 51.82 BUN/Creatinine Ratio 33.3 H Glucose 162 H Calcium 8.0 L Total Bilirubin AST ALT Alkaline Phosphatase Troponin I High Sens Total Protein Albumin Globulin Albumin/Globulin Ratio Urine Color Urine Appearance Urine pH Ur Specific [place] Urine Protein Urine Glucose (UA) Urine Ketones Urine Blood Urine Nitrite Urine Bilirubin Urine Urobilinogen Ur Leukocyte Esterase Urine WBC (Auto) Urine RBC (Auto) U Hyaline Cast (Auto) U Epithel Cells (Auto) Urine Bacteria (Auto) Urine Comment Stool Occult Bld Scrn Blood Type Blood Type Recheck Antibody Screen 03/03/25 Unknown WBC RBC Hgb Hct MCV MCH MCHC RDW Std Deviation RDW Coeff of Markos Plt Count MPV Immature Gran % (Auto) Neut % (Auto) Lymph % (Auto) [place] % (Auto) Eos % (Auto) Baso % (Auto) Neut # (Auto) Lymph # (Auto) [place] # (Auto) Eos # (Auto) Baso # (Auto) Immature Gran # (Auto) PT INR APTT PTT Ratio Sodium Potassium Chloride Carbon Dioxide Anion Gap BUN Creatinine Est Cr Clr Drug Dosing eGFR BUN/Creatinine Ratio Glucose Calcium Total Bilirubin AST ALT Alkaline Phosphatase Troponin I High Sens Total Protein Albumin Globulin Albumin/Globulin Ratio Urine Color Urine Appearance Urine pH Ur Specific [place] Urine Protein Urine Glucose (UA) Urine Ketones Urine Blood Urine Nitrite Urine Bilirubin Urine Urobilinogen Ur Leukocyte Esterase Urine WBC (Auto) Urine RBC (Auto) U Hyaline Cast (Auto) U Epithel Cells (Auto) Urine Bacteria (Auto) Urine Comment Stool Occult Bld Scrn Negative Blood Type Blood Type Recheck Antibody Screen Medications Administered Chest X-Ray 03/02/25 16:36 Exam: Chest one view portable Reason for exam: Dyspnea Previous studies: None FINDINGS: Portable exam shows normal cardiac size. The lungs show no active infiltrate, collapse or edema and no pleural effusion or pneumothorax is noted. IMPRESSION: No acute disease seen at this time. Electronically signed by Bryan Friend 03-02-2025 5:41 PM PG Care Time/CCT Total # of Minutes Spent Total Time Spent with Patient: Total time spent is greater than 50% in coordination of care (as documented) at patient's floor/unit and/or counseling patient: Coding Level of Care Code 90262 SUB INP/OBS CARE 2/35MIN Diagnoses Hematemesis K92.0 Nausea presence: unspecified Melena K92.1 Acute kidney injury N17.9 Time Spent (min) 35 (1) Hematemesis Nausea presence: unspecified Qualified Code(s): K92.0 - Hematemesis
--- NOTE | 2025-03-03 13:54 | Anesthesiology Consultation ---
Date of Service March 03, 2025 Assessment & Plan Chart Review Chart Review: Acceptable Risk for Surgery and Patient NOT seen in Pre Admission Testing Consults Requested none ASA ASA4 Proposed Anesthesia Anesthesia Type: MAC Risk / Benefits Reviewed With: PT / POA / Parent / Guardian, Accepts Plan and Informed Consent Obtained History Surgery Operation Date: 03/03/25 18:30 Proposed Procedures p Esophagogastroduodenoscopy Dr. Anuja Licea MD Height/Weight Height: 5 ft 2 in Weight: 89.6 kg Allergies Allergy/AdvReac Type Severity Reaction Status Date / Time gabapentin Allergy Intermediate Hives Verified 03/02/25 19:06 insulin glargine Allergy Intermediate Rash Verified 03/02/25 19:06 pregabalin [From Lyrica] Allergy Intermediate Rash Verified 03/02/25 19:06 acetaminophen [From Tylenol] AdvReac Severe "CAN'T USE Verified 03/02/25 19:06 MY LEGS"/NERVES "JUMP" ALL THROUGH MY BODY Medications Home Medications Medication Instructions Recorded Confirmed Last Taken aripiprazole 20 mg tablet 20 mg PO DAILY 03/02/25 03/02/25 03/01/25 aspirin 81 mg tablet,delayed 81 mg PO DAILY 03/02/25 03/02/25 03/01/25 release budesonide 160 mcg-glycopyr 9 1 inh inhalation DIRECTED 03/02/25 03/02/25 03/01/25 mcg-formot 4.8 mcg/actuation HFA inhaler (Breztri Aerosphere) bumetanide 2 mg tablet 2 mg PO QAM 03/02/25 03/02/25 03/01/25 clopidogrel 75 mg tablet 75 mg PO DAILY 03/02/25 03/02/25 03/01/25 glipizide 5 mg tablet, extended 5 mg PO DAILY 03/02/25 03/02/25 03/01/25 release 24 hr levothyroxine 200 mcg tablet 200 mcg PO DIRECTED 03/02/25 03/02/25 03/01/25 levothyroxine 50 mcg tablet 50 mcg PO DAILY 03/02/25 03/02/25 03/01/25 lisinopril 2.5 mg tablet 2.5 mg PO DAILY 03/02/25 03/02/25 03/01/25 meclizine 25 mg tablet 25 mg PO DIRECTED PRN Dizziness 03/02/25 03/02/25 03/01/25 Or Vertigo pantoprazole 40 mg tablet,delayed 40 mg PO DAILY 03/02/25 03/02/25 03/01/25 release rosuvastatin 5 mg tablet 5 mg PO DAILY 03/02/25 03/02/25 03/01/25 Active Medications Generic Name Dose Route Start Last Admin Trade Name Jeff PRN Reason Stop Dose Admin Aripiprazole 20 mg 03/02/25 23:01 03/03/25 08:38 Aripiprazole 10 Mg Tab PO 04/01/25 23:00 20 mg DAILY LUKE Administration Fluticasone Furoate 1 puffs 03/03/25 09:00 03/03/25 08:38 Fluticasone Furoate 200mcg 14 Puffs/Inhaler INH 04/02/25 08:59 Not Given DAILY LUKE Pantoprazole Sodium 40 mg/ 100 mls @ 20 mls/hr 03/02/25 18:15 03/03/25 10:12 Dextrose IV 04/01/25 18:14 8 mg/hr Q5H LUKE 20 mls/hr Administration 8 MG/HR Octreotide Acetate 500 mcg/ 100.5 mls @ 10.05 mls/hr 03/02/25 19:15 03/03/25 04:13 Sodium Chloride IV 03/04/25 19:14 50 mcg/hr .Q10H LUKE 10.1 mls/hr Administration 50 MCG/HR Levothyroxine Sodium 50 mcg 03/03/25 06:30 03/03/25 06:25 Levothyroxine Sodium 50 Mcg Tablet PO 04/02/25 06:29 50 mcg DAILYBB LUKE Administration Levothyroxine Sodium 200 mcg 03/03/25 06:30 03/03/25 06:25 Levothyroxine Sodium 200 Mcg Tablet PO 04/02/25 06:29 200 mcg DAILYBB LUKE Administration Rosuvastatin Calcium 5 mg 03/02/25 23:01 03/03/25 08:38 Rosuvastatin Calcium 5 Mg Tab PO 04/01/25 23:00 5 mg DAILY LUKE Administration Umeclidinium/Vilanterol 1 puffs 03/03/25 09:00 03/03/25 08:38 Umeclidinium/Vilanterol 62.5/25mcg 7 Puffs/Inhaler INH 04/02/25 08:59 Not Given DAILY LUKE NPO Date Last Intake of Fluids: 03/03/25 Time Last Intake of Fluids: 06:00 Date Last Intake of Solids: 03/01/25 Time Last Intake of Solids: 18:30 Exercise / Class Metabolic Activity II 4-5 Yardwork/Stairs/Walk up hill Past Anesthesia History No Hx of Anesthesia Complications and No Family Hx of Anesthesia Complications History of PONV No Hx of PONV and No Hx of Motion Sickness Social History Smoking Status: Unknown if ever smoked Hx Alcohol Use: Yes Alcohol type: hard liquor alcohol intake frequency: a few times a month Hx Substance Use: No Physical Exam Vital Signs Last Vital Signs Temp 36.7 C 03/03/25 13:38 Pulse 74 03/03/25 13:38 Resp 16 03/03/25 13:38 BP 131/72 03/03/25 13:38 Pulse Ox 96 03/03/25 13:38 O2 Del Method Room Air 03/03/25 13:38 ENMT Mouth: no dentition abnormality Thyromental Distance: > or= 3.5 Finger Breadths Mallampati Class: II Neck normal visual inspection Respiratory normal respiratory effort Auscultation: lungs clear to auscultation bilaterally Cardiovascular Rate/Rhythm: regular rate and regular rhythm Psychiatric Orientation: alert Testing Laboratory Results 03/03/25 06:37 03/03/25 08:29 PT 10.8 Seconds (9.0-12.0) 03/02/25 15:57 INR 1.0 (0.9-1.1) 03/02/25 15:57 APTT 28 Seconds (21-31) 03/02/25 15:57 Urine Color Yellow 03/02/25 15:57 Urine Appearance Cloudy (Clear) A 03/02/25 15:57 Urine pH 5.0 (4.5-7.5) 03/02/25 15:57 Ur Specific [place] 1.027 (1.000-1.030) 03/02/25 15:57 Urine Protein 2+ (Negative) H 03/02/25 15:57 Urine Glucose (UA) Negative (Negative) 03/02/25 15:57 Urine Ketones 1+ (Negative) H 03/02/25 15:57 Urine Nitrite Negative (Negative) 03/02/25 15:57 Ur Leukocyte Esterase 2+ (Negative) H 03/02/25 15:57 Urine WBC (Auto) >50 /hpf (0-5) H 03/02/25 15:57 Urine RBC (Auto) 6-10 /hpf (0-2) H 03/02/25 15:57 U Hyaline Cast (Auto) 11-20 /lpf (0-2) H 03/02/25 15:57 U Epithel Cells (Auto) 3-5 /hpf (0-2) H 03/02/25 15:57 Urine Bacteria (Auto) None Seen (None Seen) 03/02/25 15:57 Blood Type O Negative 03/02/25 16:06 Antibody Screen NEGATIVE 03/02/25 16:06 03/02/25 15:57 Urine Culture - Preliminary Urine,Clean Catch Pin-point growth present, reincubating.
--- NOTE | 2025-03-03 14:13 | GI REPORT ---
[facility] Patient: LEATHA ANDERSEN : 1965 Sex at : Female Age: 59 Years Procedure: Upper GI endoscopy Date: 03/03/2025 Attending Physician: Dillon Licea MD Referring MD: Dallas Cedeno DO Indications: - Suspected upper gastrointestinal bleeding Medications: - Monitored Anesthesia Care Complications: - No immediate complications. Procedure: - Prior to the procedure, a History and Physical was performed, and patient medications and allergies were reviewed. The patient's tolerance of previous anesthesia was also reviewed. The risks and benefits of the procedure and the sedation options and risks were discussed with the patient. All questions were answered, and informed consent was obtained. [Anticoagulant Agents] [Days Prior to Procedure]. [ASA Grade]. After reviewing the risks and benefits, the patient was deemed in satisfactory condition to undergo the procedure. - The egd scope was introduced through the mouth and advanced to the second part of the duodenum. - The upper GI endoscopy was accomplished without difficulty. - The patient tolerated the procedure well. Findings: - LA Grade B (one or more mucosal breaks greater than 5 mm, not extending between the tops of two mucosal folds) esophagitis with no bleeding was found at the gastroesophageal junction (on retroflexion). - Evidence of a gastric bypass and gastrojejunostomy were found. There was a 1 cm cleaned base ulceration at the anastomosis. Biopsies were taken from gastric pouch with a cold forceps for HPylori. - The examined jejunum was normal. Impression: - LA Grade B esophagitis with no bleeding. - A gastric bypass and gastrojejunostomy was found, characterized by ulceration. Biopsied. - Normal examined jejunum. Recommendation: - Resume previous diet. Clear liquids. - Patient has a contact number available for emergencies. The signs and symptoms of potential delayed complications were discussed with the patient. Return to normal activities tomorrow. Written discharge instructions were provided to the patient. Procedure Code(s): - 66489, Esophagogastroduodenoscopy, flexible, transoral; with biopsy, single or multiple Diagnosis Code(s): - K20.90, Esophagitis, unspecified without bleeding - Z98.84, Bariatric surgery status - Z98.0, Intestinal bypass and anastomosis status CPT(R) - 202 copyright [employer]. All Rights Reserved. The CPT codes, CCI edits and ICD codes generated are intended as suggestions and were generated based on input data. These codes are preliminary and upon production counter review may be revised to meet current compliance and payer requirements. The provider is responsible for the final determination of appropriate codes, and modifiers. Dillon Licea MD This document has been electronically signed. Note Initiated:03/03/2025 Note Completed:03/03/2025 2:12 PM \\[email or web address]\InterfaceData\Data\Provation\Results\LIVE\[id number]
--- NOTE | 2025-03-03 14:39 | Anesthesiology Progress Note ---
Date of Service March 03, 2025 Anesthesia Post Procedure Vital Signs Vital Signs: Temp Pulse Pulse Resp BP BP BP 03/03/25 14:32 36.7 C 72 16 120/75 03/03/25 14:13 36.7 C 83 16 114/76 03/03/25 13:38 36.7 C 74 16 131/72 03/03/25 11:26 36.8 C 66 20 127/79 03/03/25 09:42 71 03/03/25 07:24 36.5 C 70 20 122/77 03/03/25 03:13 36.5 C 80 16 113/76 03/02/25 23:11 86 03/02/25 23:10 36.6 C 80 16 126/66 03/02/25 22:41 95 H 18 118/66 03/02/25 22:30 85 17 100/58 L 03/02/25 22:00 79 15 117/65 03/02/25 21:30 87 19 114/77 03/02/25 21:00 85 24 03/02/25 21:00 93 H 24 136/86 03/02/25 20:30 81 20 141/74 H 03/02/25 20:03 89 18 128/80 03/02/25 19:39 94 H 23 141/74 H 03/02/25 19:12 80 18 127/80 03/02/25 19:00 90 20 127/80 03/02/25 18:28 89 03/02/25 17:00 91 H 16 124/88 03/02/25 16:43 113 H 17 140/78 03/02/25 15:31 36.4 C L 100 H 18 144/87 H Pulse Ox O2 Del Method 03/03/25 14:32 100 Room Air 03/03/25 14:13 100 Room Air 03/03/25 13:38 96 Room Air 03/03/25 11:26 96 Room Air 03/03/25 09:42 03/03/25 07:24 97 Room Air 03/03/25 03:13 97 Room Air 03/02/25 23:11 03/02/25 23:10 99 Room Air 03/02/25 22:41 98 Room Air 03/02/25 22:30 98 03/02/25 22:00 99 03/02/25 21:30 97 03/02/25 21:00 99 07/30/25 21:00 97 Room Air 03/02/25 20:30 96 03/02/25 20:03 95 03/02/25 19:39 99 03/02/25 19:12 97 03/02/25 19:00 97 Room Air 03/02/25 18:28 03/02/25 17:00 97 Room Air 03/02/25 16:43 96 Room Air 03/02/25 15:31 96 Room Air Transfer of Care Handoff Completed per policy Notes Mental Status: alert / awake / arousable Patient Amnestic to Procedure: Yes Nausea / Vomiting: adequately controlled Pain: adequately controlled Airway Patency, RR, SpO2: stable & adequate BP & HR: stable & adequate Hydration State: stable & adequate Anesthetic Complications: no major complications apparent
[2025-03-03] MEDS: PROPOFOL IV EMULSION 10 MG/ML 20 ML VIAL IV ONE ×2 (15:52)
[2025-03-03] MEDS: LIDOCAINE 2% 2 ML VIAL/AMP(20MG/ML) INFIL ONE (15:52)
[2025-03-03] MEDS: SUCRALFATE 1 GM/10 ML UDC PO SCH ×2 (16:17)
--- NOTE | 2025-03-04 05:19 | Electrocardiogram Report ---
Test Reason : Blood Pressure : */* mmHG Vent. Rate : 92 BPM Atrial Rate : 92 BPM P-R Int : 128 ms QRS Dur : 72 ms QT Int : 352 ms P-R-T Axes : 26 -12 7 degrees QTcB Int : 435 ms Normal sinus rhythm Minimal voltage criteria for LVH, may be normal variant ( R in aVL ) Poor R wave progression, consider anterior CT vs. lead placement vs. LVH Abnormal ECG No previous ECGs available Confirmed by Peter Munoz ([id number]) on 03/04/2025 5:18:51 AM Referred By: REFERRED SELF Confirmed By: Peter Munoz
[2025-03-04 05:20] LABS: Hematocrit (blood only) 32.0 % (37.0-47.0); Hemoglobin 10.9 g/dl (12.0-16.0); Mean Corpuscular Hemoglobin 29.7 pg (25.0-34.0); Mean Corpuscular Volume 87.2 fL (80.0-100.0); Platelet Count 190 K/uL (130-400); RDW Standard Deviation 39.2 fL (36.4-46.3); Red Blood Count 3.67 M/uL (4.20-5.40); White Blood Count 6.55 K/ul (4.8-10.8)
[2025-03-04 05:35] LABS: Anion Gap 4.0 (3-11); Blood Urea Nitrogen 27.0 mg/dl (6-23); Calcium 8.2 mg/dl (8.6-10.3); Carbon Dioxide 26.0 mmol/L (21-32); Chloride 108.0 mmol/L (98-107); Creatinine Clr Calc Pharmacy 47.2 ml/min; Glucose 149.0 mg/dl (70-99(Fasting)); Potassium 4.6 mmol/L (3.5-5.1); Sodium 138.0 mmol/L (136-145)
[2025-03-04] MEDS: IRON SUCROSE 300 MG in SODIUM CHLORIDE 0.9% 250 ML IV ONE (08:59)
--- NOTE | 2025-03-04 09:31 | Gastroenterology Progress Note ---
Date of Service March 04, 2025 Assessment & Plan (1) GI bleed: Plan: Patient feeling much improved. she had a drop in hgb, but no further signs of active bleeding. - continue to follow hgb/hct. - continue with protonix drip and carafate 1 gm qid. -Further recommendations to come with Supervising GI provider on medical rounds. Please see co-signature comments. Admission and Anticipated Discharge Date Admission Date: March 02, 2025 Supervising Physician Co-Signing Physician Notes I saw and examined this patient with our nurse practitioner and agree with her assessment and plan. Patient hemodynamically stable hemoglobin 12 no significant overt bleeding. Black stool probably old blood. Continue PPI and Carafate. Subjective Patient tells me that she is feeling much better. no bowel movements since yesterday. no further nausea or vomiting. she feels that starting carafate has helped her to be able to tolerate her diet. The remainder of the GI ROS were unremarkable. 03/04/25 Hgb 10.9 EGD 03/03/25 : - LA Grade B esophagitis with no bleeding. - A gastric bypass and gastrojejunostomy was found, characterized by ulceration. Biopsied. - Normal examined jejunum. Review of Systems Review of Systems: All systems reviewed & are unremarkable except as noted in HPI & below Physical Exam Constitutional: WD/WN, vitals as above Respiratory: normal respiratory effort, lungs clear to auscultation Cardiovascular: Rate/Rhythm: regular rate and regular rhythm Gastrointestinal (Abdomen): normal bowel sounds, soft, nontender, no hepatosplenomegaly Psychiatric: Orientation: alert and oriented x 3 Affect: euthymic affect Results & Data Results & Data Vital Signs (Past 12 Hours) Vital Signs Temp Pulse Pulse Resp BP Pulse Ox O2 Del Method 03/04/25 07:53 97.3 F L 77 18 100/58 L 100 Room Air 03/04/25 03:47 117/78 03/04/25 03:32 97.5 F L 71 18 96/61 L 99 Room Air 03/03/25 22:51 97.9 F 64 18 97/62 L 97 Room Air 03/03/25 22:38 70 Laboratory Results Laboratory Results - last 48 hr 03/02/25 03/02/25 03/02/25 15:57 16:06 19:05 WBC 13.06 H RBC 5.17 Hgb 14.9 Hct 43.2 MCV 83.6 MCH 28.8 MCHC 34.5 RDW Std Deviation 38.1 RDW Coeff of Markos 12.4 Plt Count 260 MPV 10.6 Immature Gran % (Auto) Neut % (Auto) Lymph % (Auto) Cotton % (Auto) Eos % (Auto) Baso % (Auto) Neut # (Auto) Lymph # (Auto) Cotton # (Auto) Eos # (Auto) Baso # (Auto) Immature Gran # (Auto) PT 10.8 INR 1.0 APTT 28 PTT Ratio 1.0 Sodium 136 Potassium 4.1 Chloride 102 Carbon Dioxide 24 Anion Gap 10 BUN 38 H Creatinine 1.42 H Est Cr Clr Drug Dosing 43.5 eGFR 42.34 BUN/Creatinine Ratio 26.8 H Glucose 214 H Calcium 9.1 Total Bilirubin 0.4 AST 24 ALT 9 Alkaline Phosphatase 110 H Troponin I High Sens 5.0 Total Protein 7.2 Albumin 3.9 Globulin 3.3 Albumin/Globulin Ratio 1.2 Urine Color Yellow Urine Appearance Cloudy A Urine pH 5.0 Ur Specific [place] 1.027 Urine Protein 2+ H Urine Glucose (UA) Negative Urine Ketones 1+ H Urine Blood 2+ H Urine Nitrite Negative Urine Bilirubin Negative Urine Urobilinogen Negative Ur Leukocyte Esterase 2+ H Urine WBC (Auto) >50 H Urine RBC (Auto) 6-10 H U Hyaline Cast (Auto) 11-20 H U Epithel Cells (Auto) 3-5 H Urine Bacteria (Auto) None Seen Urine Comment Stool Occult Bld Scrn Blood Type O Negative Blood Type Recheck O Negative Antibody Screen NEGATIVE 03/02/25 03/03/25 03/03/25 20:29 06:37 08:29 WBC 9.66 8.93 RBC 3.06 L 4.16 L Hgb 8.7 L D 12.1 D Hct 26.5 L 36.2 L MCV 86.6 87.0 MCH 28.4 29.1 MCHC 32.8 33.4 RDW Std Deviation 39.8 40.3 RDW Coeff of Markos 12.6 12.7 Plt Count 148 219 MPV 10.9 10.9 Immature Gran % (Auto) 0.3 0.2 Neut % (Auto) 76.9 60.2 Lymph % (Auto) 15.1 28.8 Cotton % (Auto) 7.1 7.4 Eos % (Auto) 0.4 2.8 Baso % (Auto) 0.2 0.6 Neut # (Auto) 7.42 H 5.38 Lymph # (Auto) 1.46 2.57 Cotton # (Auto) 0.69 H 0.66 H Eos # (Auto) 0.04 0.25 Baso # (Auto) 0.02 0.05 Immature Gran # (Auto) 0.03 0.02 PT INR APTT PTT Ratio Sodium 138 Potassium 4.5 Chloride 109 H Carbon Dioxide 22 Anion Gap 7 BUN 40 H Creatinine 1.20 Est Cr Clr Drug Dosing 51.9 eGFR 51.82 BUN/Creatinine Ratio 33.3 H Glucose 162 H Calcium 8.0 L Total Bilirubin AST ALT Alkaline Phosphatase Troponin I High Sens Total Protein Albumin Globulin Albumin/Globulin Ratio Urine Color Urine Appearance Urine pH Ur Specific [place] Urine Protein Urine Glucose (UA) Urine Ketones Urine Blood Urine Nitrite Urine Bilirubin Urine Urobilinogen Ur Leukocyte Esterase Urine WBC (Auto) Urine RBC (Auto) U Hyaline Cast (Auto) U Epithel Cells (Auto) Urine Bacteria (Auto) Urine Comment Stool Occult Bld Scrn Blood Type Blood Type Recheck Antibody Screen 03/03/25 03/04/25 Unknown 04:42 WBC 6.55 RBC 3.67 L Hgb 10.9 L Hct 32.0 L MCV 87.2 MCH 29.7 MCHC 34.1 RDW Std Deviation 39.2 RDW Coeff of Markos 12.3 Plt Count 190 MPV 11.0 Immature Gran % (Auto) Neut % (Auto) Lymph % (Auto) Cotton % (Auto) Eos % (Auto) Baso % (Auto) Neut # (Auto) Lymph # (Auto) Cotton # (Auto) Eos # (Auto) Baso # (Auto) Immature Gran # (Auto) PT INR APTT PTT Ratio Sodium 138 Potassium 4.6 Chloride 108 H Carbon Dioxide 26 Anion Gap 4 BUN 27 H Creatinine 1.32 H Est Cr Clr Drug Dosing 47.2 eGFR 46.22 BUN/Creatinine Ratio 20.5 H Glucose 149 H Calcium 8.2 L Total Bilirubin AST ALT Alkaline Phosphatase Troponin I High Sens Total Protein Albumin Globulin Albumin/Globulin Ratio Urine Color Urine Appearance Urine pH Ur Specific [place] Urine Protein Urine Glucose (UA) Urine Ketones Urine Blood Urine Nitrite Urine Bilirubin Urine Urobilinogen Ur Leukocyte Esterase Urine WBC (Auto) Urine RBC (Auto) U Hyaline Cast (Auto) U Epithel Cells (Auto) Urine Bacteria (Auto) Urine Comment Stool Occult Bld Scrn Negative Blood Type Blood Type Recheck Antibody Screen Coding Level of Care Code 16108 SUB INP/OBS CARE MIN Diagnoses GI bleed K92.2
[2025-03-04 11:21] VITALS: PULSE 65; RESP 20; TEMP 97.5; O2SAT 99
[2025-03-04 15:35] VITALS: BP 121/69
--- NOTE | 2025-03-04 18:17 | Discharge Summary ---
Discharge Summary Date of Service March 04, 2025 Principal Dx & Hospital Course #1 = Principal Diagnosis (1) Hematemesis: Grace is a 59 yo woman with PMH of gastric bypass surgery in 2013; diabetes (non-insulin dependent), CKD, bipolar, she's drive for work from [place] to [place]. since 03/01/2025, been having melena, bloody vomiting, and inability to tolerate solid intake she is a Jehovah witness. on 03/02/2025, she's came to [facility] ([place] for hematemesis and found to acute kidney injury and admitted for upper gI bleeding, started on protonix her last dose of plavix was on 03/01/2025 she was started on IV fluid and IV protonix and ocretodie infusion GI plan for EGD 1. melena 2. hematemesis episode 3. acute kidney injury 4. hx of gastric bypass surgery in 2013 5. Jehovah witness 6. hx of CKD 7. acetominophen allergy 8. diabetes (non-insulin dependent) 9. bipolar 10, hypothyroidism 1. melena, blood loss anemia hemetemesis s/p EGD and found esophagitis and anastomosis ulcer started on protonix BID and carafate s/p protonix infusion hold plavix, hold aspirin she is Jehoavh witness she was having blood in her stool on 03/04 she does not want to remained at [place] for monitoring will drive 8-10 hours to [place], if problem recurred then they will go to the nearby ED in [place], [place] 2. acute kidney injury IV fluid, hold low dose lisinopril she's mentioned hx of CKD holding her lisinopril 2.5mg 3 diabetes she been off insulin since 2013 hold glipizide and poiligitone no sliding scale insulin 4. hypothyroidism, synthyroid 250mcg daily 5. bipolar, abilify 40mg daily 6 .hx of gastric bypass surgery, performed in 2013 her GI doctor is Dr. Anne-Marie Rodríguez her last EGD was more than 4-5 years ago emergency contact , Aki, ([phone]) brother in law, Ed, PCP-David Neil MD, [place], [place] (2) Melena: (3) Acute kidney injury: Admission HPI Per Admitting Provider Grace is a 59 yo woman with PMH of morbid obesity s/p gastric bypass in 2013, diabetes (non-insulin dependent), CKD, bipolar disorder she is a Jevohah witness, in the the past, has severe allergy to acetaminophen and insulin since 2 days ago, she's been noticing melena, and indigestion, in addition, she been having inability to tolerate solid food and bloody vomiting. she was following with GI (Dr. Anne-Marie Rodríguez) in [facility] but has no recent EGD she's taking aspirin and plavix. on 03/02/2025, she' was driving [place] from [place] to [place] and noticied significant melena, abdominal discomfort, and present to our hospital for evaluatoin she's was found to be in acute kidney injury and admitted for evaluation for blood loss anemia her abdomen is non-tender to palpitation other than plavix and aspirin, she's denied taking NSAID or fish oil her gastric surgery was in 2013. she is a Jevohah witness and declined blood transfusion she's has severe allergy to acetaminophen, one specific type of insulin after her gastric surgery in 2013, she no longer need insulin Discharge Exam VITALS: Reviewed. WEIGHT/BMI reviewed. GEN: Healthy appearing, well-developed, NAD. -Head: NC/AT; NECK: Supple, with no masses. CV: RRR, no m/r/g. LUNGS: CTAB, no w/r/c. ABD: Soft, NT/ND, NBS, no masses or organomegaly. : N/A SKIN: Warm, well perfused. No skin rashes or abnormal lesions. MSK: No deformities, Normal gait. EXT: No clubbing, cyanosis, or edema. NEURO: Ambulating with no limitations. Normal muscle strength and tone. No focal deficits. Discharge Plan Discharge Items Patient Disposition: Home - Self-Care Reason For Visit: MELENA; BLOODY VOMITING, LEONELA Discharge Diagnosis: esophagitis, anastomosis ulcer blood loss anemia Condition on Discharge: Good Activity: Per Instructions section Lifting: Gradually increase as tolerated Non-emergency contact: Primary Care Provider Call non-emergency contact if: your symptoms worsen Follow-up/Referrals: PCP,NO [Primary Care Provider] - Diet: Carb Consistent or DM2 Addtl Attending Provider Instructions: avoid spicy food continue carafate three times a day continue protonix twice a day follow up with gastroenterology you need repeat EGD Pending Studies at Discharge: Yes Studies:: repeat CBC, BMP Stand-Alone Forms: [facility], Smoking Cessation Medications and DC Order Prescriptions: New sucralfate [Carafate] 1 gram tablet 1 g PO TID 28 Days Qty: 84 0RF pantoprazole [Protonix] 40 mg tablet,delayed release (DR/EC) 40 mg PO BID 10 Days Qty: 20 0RF Continued glipizide 5 mg tablet extended release 24hr 5 mg PO DAILY meclizine 25 mg tablet 25 mg PO DIRECTED PRN (Reason: Dizziness Or Vertigo) levothyroxine 50 mcg tablet 50 mcg PO DAILY Rx Instructions: TOTAL DOSE 250 MCG--TAKES WITH 200 MCG TAB. levothyroxine 200 mcg tablet 200 mcg PO DIRECTED Rx Instructions: TOTAL DOSE 250 MCG--TAKES WITH 50 MCG TAB. aripiprazole 20 mg tablet 20 mg PO DAILY rosuvastatin 5 mg tablet 5 mg PO DAILY Breztri Aerosphere 160-9-4.8 mcg/actuation HFA aerosol inhaler 1 inh INHALATION DIRECTED bumetanide 2 mg tablet 2 mg PO QAM aspirin 81 mg Tablet,Delayed Release (Dr/Ec) 81 mg PO DAILY lisinopril 2.5 mg tablet 2.5 mg PO DAILY Held clopidogrel 75 mg tablet 75 mg PO DAILY Hold Instructions: Resume on 03/22/25. Discontinued pantoprazole 40 mg tablet,delayed release (DR/EC) 40 mg PO DAILY Discharge Orders: Discharge Order (Routine); Ordered 03/04/25 Ordered By: Dallas Willis/Other Patient Handouts: Esophagitis, Anemia Admission Data Admit Date/Time: 03/02/25 19:48 Attending Provider: Dallas Cedeno Admit Provider: Dallas Cedeno Primary Care Provider: PCP,NO Other Providers: Dallas Cedeno; Dillon Licea I Other Interventions: Discharge Summary Assessment (RN) Last Done: 03/04/25 15:34 Hospital Stay Data Consultations 03/02/25 17:47 ED Decision to Admit Stat 03/02/25 19:01 Consult Gastroenterology Stat Procedures Performed Operation Date: 03/03/25 18:30 Actual Procedures p EGD Biopsy Cytology - Dillon Licea MD Pending Results Patient Have Any Pending Studies at Discharge: Yes Discharge Instructions Given to Patient (Per Discharging Provider) avoid spicy food continue carafate three times a day continue protonix twice a day follow up with gastroenterology you need repeat EGD Total Time Total Time Spent Total Time Spent (In Minutes): 45 minutes Coding Level of Care Code 75343 INP/OBS DISCH >30 MIN Diagnoses Hematemesis K92.0 Nausea presence: unspecified Melena K92.1 Acute kidney injury N17.9 Time Spent (min) 35
--- NOTE | 2025-03-07 15:39 | Coding Query ---
ANEMIA To promote full compliance with coding requirements relating to patient care, physician participation is requested in all cases of pricing analyst uncertainty. Please assist us with the question(s) below: Coding Question(s): The record reflects the following clinical findings: Melena & hematemesis ..transfusion refused. low h/h If these findings are indicative of anemia, please specify the known or suspected type by placing an "X" within the parenthesis (x). If other, please document type. Examples are: ( ) Acute blood loss anemia ( ) Acute Postoperative blood loss anemia ( ) Acute postoperative anemia due to dilutional fluids ( ) Chronic blood loss anemia ( ) Anemia of chronic disease ( ) Aplastic anemia ( ) Anemia due to renal disease ( ) Anemia in neoplastic disease ( ) Iron deficient anemia ( ) Anemia, unspecified or other ( ) Other: (please specify) Thank you Gibson E[facility]OLS [facility]OSPITALClaire
--- NOTE | 2025-03-07 15:42 | Coding Query ---
CODING QUERY To promote full compliance with coding requirements relating to patient care, provider participation is requested in all cases of guard museum uncertainty. Please assist us with the question(s) below: Coding Question(s): Pt with history of gastric bypass status admitted with hematemesis and melena. EGD results: esophagitis & gastrojejunal ulcer . Please document, if known or suspected, the etiology of the GI bleed. Thank you ! Gibson Harris, [facility] . Physician's Response(s): Principal Diagnosis: "that condition established after study, to be chiefly responsible for occasioning the admission of the patient to the hospital for care." Co-Existing Principal Diagnosis: "when two or more diagnoses equally meet the criteria for principal diagnosis as determined by the circumstances of admission, diagnostic work up, and/or therapy provided, and the Alphabetic Index, Tabular List, or another coding guideline does not provide sequencing direction, any one of the diagnoses may be sequenced first." "When the physician has documented what appears to be a current diagnosis in the body of the record, but has not included the diagnosis in the final diagnostic statement, the physician should be asked whether the diagnosis should be added." (Source Coding Clinic 2 QTR90. p3-4) [facility]
== END 2025-03-04 15:35 | disposition home or self-care (01) ==
LOC: SUATTDRO → ED 15:23 → 2S 19:48 → INTOOBSV 19:48 → 2S 22:41